=== PATIENT | male | born 1985 ===

== ENCOUNTER 2024-03-02 14:38 | Emergency (ER) | payer SELFPAY ==
[2024-03-02 14:53] VITALS: BP 134/80; PULSE 116; RESP 18; TEMP 36.7; O2SAT 98
--- NOTE | 2024-03-02 17:25 | PC.NURSE ---
Pt states he no longer wants to be seen. IV removed. Pt ambulated out of ED with steady gait.
== END 2024-03-02 17:33 | disposition left against medical advice (07) ==
LOC: ANHED 17:32
DX: S29.9XXA Unspecified injury of thorax, initial encounter (principal)
CPT/HCPCS: 99199